=== PATIENT | male | born 1995 | race Caucasian/White ===

== ENCOUNTER 2016-08-27 22:18 | Emergency (ER) | payer OTHER ==
--- NOTE | 2016-08-27 22:48 | ED.REPORT ---
HPI- Male Date of Service Aug 27, 2016 ED Provider: Nursing Notes Stated Complaint: RIGHT TESTICLE TWISTED/UNCOMFORTABLE Nursing Notes Reviewed: Yes Allergies: Coded Allergies: No Known Allergies (Unverified Allergy, 09/03/12) Scheduled PRN Hydrocodone-Acetaminophen 5-325 mg (Hydrocodone-Acetaminophen 5-325 mg) 1 Each Tablet 1-2 TABLET PO Q6H PRN PRN For Pain Ibuprofen (Ibuprofen) 800 Mg Tablet 800 MG PO TID PRN PRN For Pain General Time Seen by MD: 22:47 Discharge & Departure Referrals: NOPCP (PCP) Joselo Patton MD Aug 27, 2016 22:48
[2016-08-28] MEDS ORDERED: HYDR-4003 PO (16:49)
[2016-08-28] MEDS ORDERED: IBUP800T28 PO (16:49)
== END 2016-08-27 23:12 | disposition left against medical advice (07) ==
LOC: SED 22:18
DX: N50.89 Other specified disorders of the male genital organs (principal); Z53.21 Procedure and treatment not carried out due to patient leaving prior to being seen by health care provider

== ENCOUNTER 2016-08-28 14:11 | Emergency (ER) | payer OTHER ==
[~2016-08-28] VITALS: Ht 172.7 cm; Wt 76.4 kg
[2016-08-28 14:32] VITALS: BP 125/76; PULSE 84; RESP 16; O2SAT 99
--- NOTE | 2016-08-28 16:04 | ED.REPORT ---
HPI- Male Date of Service Aug 28, 2016 ED Provider: Dr. Campbell Pt is a 20 year old male presenting to the ED complaining of worsening intermittent right side testicular pain and discomfort onset 3 days ago. Denies fever, nausea, vomiting, history of sexually transmitted infection. Pt was seen at [facility] last night but did not receive an ultrasound, and was sent here from today to receive one. 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) Allergies: Coded Allergies: No Known Allergies (Unverified Allergy, 09/03/12) Scheduled PRN Hydrocodone-Acetaminophen 5-325 mg (Hydrocodone-Acetaminophen 5-325 mg) 1 Each Tablet 1-2 TABLET PO Q6H PRN PRN For Pain Ibuprofen (Ibuprofen) 800 Mg Tablet 800 MG PO TID PRN PRN For Pain General Time Seen by MD: 16:03 Chief Complaint Testicle painful right Hx Obtained From: Patient Arrived By: Walk-in Onset Occurred: 3 days ago Symptom Duration: Intermittent Location: : Testicle right Quality: Painful Severity: Current: Moderate Severity: Maximum: Moderate Recent Healthcare: No recent hospitalization, Recent doctor visit Similar Sx Previous: No Risk- Male Torsion Risk Stratification RF Statements: Risk factors reviewed, No risk factors Past Medical History Past Medical History denies Past Surgical History denies Smoking History Unknown if Ever Smoker Social History Drug Use: THC Ambulatory Status Independent Review of Systems Constitutional: Denies: Fever GI: Denies: Nausea, Vomiting Male: Reports Testicular pain Complete sys rev & neg: except as marked. Physical Exam Initial Vital Signs Vital Signs (First) Date Time Temp Pulse Resp B/P Pulse Ox O2 Delivery O2 Flow Rate FiO2 08/28/16 14:32 36.2 84 16 125/76 99 Room Air Initial VS: Reviewed, Vital signs normal General/Constitutional: Well-developed, Well-nourished Head / Eyes: Atraumatic, Normocephalic, PERRL ENT: Mucous membranes moist, Conjunctiva normal, No scleral icterus Respiratory: No respiratory distress Abdomen / GI: No distention Extremities: Vascular intact, Neuro intact, No swelling, No tenderness Skin: Warm, Dry, No cyanosis Neurologic: Alert, Oriented, Nonfocal Psychiatric: Mood/affect normal, Behavior normal, Normal thought content Male Genitourinary: Atraumatic, Inspection NL, Penis NL, No penile discharge, Testes NL, No mass, No hernia, No lesions or rash Testicle not swollen. No scrotal swelling or adenopathy. Interpretation & Diagnostics Interpretation & Diagnostics: TESTICULAR ULTRASOUND: IMPRESSION: No source for testicular pain at time of exam. Intermittent testicular torsion cannot be excluded. Dictated by: Darron LOPEZ Interpreted: Lorrie Subramanian MD on 08/28/2016 at 16:46 Lab Results Interpretation Test 08/28/16 16:51 Urine Color Yellow (YELLOW) Urine Appearance Turbid (CLEAR,HAZY) Urine pH 8.0 (5.0-8.0) Urine Specific Lynn 1.020 (1.003-1.035) Urine Protein Negativemg/dL (NEG,TRACE) Urine Glucose (UA) Negativemg/dL (NEGATIVE) Urine Ketones Negativemg/dL (NEGATIVE) Urine Occult Blood Negative (NEGATIVE) Urine Nitrite Negative (NEGATIVE) Urine Bilirubin Negative (NEGATIVE) Urine Urobilinogen Normalmg/dL (NORMAL) Urine Leukocyte Esterase Negative (NEGATIVE) Urine RBC 0-2/hpf (0-2) Urine WBC 0-5/hpf (0-5) Urine Epithelial Cells Occasional/hpf (NONE-MOD) Urine Crystals Amorphous phosphates Urine Bacteria None/hpf (NONE-FEW) Urine Hyaline Casts None/lpf (NONE) Urine Granular Casts None seen (NONE SEEN) Urine Waxy Casts None seen (NONE SEEN) Urine Red Blood Cell Casts None seen (NONE SEEN) Urine White Blood Cell Casts None seen (NONE SEEN) Urine Mucus None seen (None Seen) Urine Trichomonas None seen (NONE SEEN) Urine Yeast None (NONE SEEN) Urinalysis Comment None Urine Culture Reflexed Not indicated Lab Results Interpretation: Urine dip negative GC pending Re-Eval/Medical Decision Med Decision/Clinical Course This is a 20-year-old male referred over from urgent care for further evaluation of testicle pain. Patient started about the possibility of torsion, but describes atypical symptoms of slow onset right-sided testicle discomfort. He has been present for a prolonged period of time, it is mildly intermittent, but again more than 24 hours of constant symptoms, not intermittent brief periods. Symptoms are moderate, sometimes worse with movement. He thinks he noticed some testicular swelling last night, but none today. He has had no dysuria, no discharge, denies prior history of STD. He has no medical problems. On exam he generally appears well. He does not appear in physical discomfort. On exam. The testicle exam is actually normal, I do not appreciate any scrotal swelling, testicular tenderness, epididymal tenderness, there is a normal testicular lie, there is no mass or hernia or pathology in the inguinal canal, no adenopathy, no skin lesions. An ultrasound was obtained and was normal-in the setting of 3 days of symptoms with prolonged ongoing discomfort, sensitivity is excellent. The clinical presentation is also argues against torsion. Urinalysis is negative. The patient's and advised that a definitive etiology is not present, supportive care discussed. Need for urology follow-up or return for new or worsened symptoms occur. This point the patient has neitherr clinical historical or physical exam findings nor laboratory and ultrasound findings to suggest torsion. A mild orchitis is still in the differential, idiopathic causes more likely-there are no findings Ultrasound suggest grey epididymitis, no markers of infection on urinalysis. Probability of STD is low, so the patient's aware of the testing as been sent and he will receive call back if abnormal. Patient is is discharged in good condition. Source of Hx: Old records Re-Evaluation/Progress : Time of Eval: 16:55 Patient Status: Condition improved Re-Evaluation/Progress Note: Discussed ultrasound results and plan for discharge. Pt understands and agrees with plan. Differential Diagnosis: Negative: Bladder outlet obstruct, Cellulitis, Cystitis , acute, Carroll's gangrene, Herpetic dermatitis, Hydrocele, Inguinal hernia left, Inguinal hernia right, Necrotizing fasciitis, Paraphimosis, Pyelonephritis , acute, Sexually transmit disease, Syphilis, Testicular torsion left, Testicular torsion right, Torsion, appendix testis, Urinary obstruction, Urinary retention, Urinary tract infection Counseled Regarding: Diagnosis, Lab results, Need for follow-up, When/why to return to ED Discharge & Departure Impression: Primary Impression: Testicular pain, right Disposition: Home Discharge Condition All VS Reviewed: Yes Condition: Improved Additional Instructions: 1. A dangerous cause of the testicular pain was not identified. 2. Your ultrasound did not reveal any evidence of torsion or twisting of the testicle. Additionally the ultrasound did not reveal markers of epididymitis, inguinal hernia, or other common causes of testicular pain. 3. Urine initial urine test did not reveal clear markers of infection-although we have sent the urine for additional testing will take several days, and will contact you if it is abnormal. 4. In this setting at nd inflammation of the testicle that causes the discomfort-but usually resolves with time, sometimes over 1-2 weeks. 4. Take ibuprofen 800 mg 3 times a day for pain. 5. Wear briefs, not boxers as they support the testicle in this setting. 6. If needed for more severe pain, take hydrocodone 1-2 tabs every 6 hours. Note: This medication contains narcotic and causes drowsiness. No driving for at least 4-6 hours after taking. 7. Symptoms are expected to certainly improving shortly, if symptoms are worsening, if he developed fever, scrotal swelling, increasing pain-return to the emergency department. If symptoms are not clearly improving after a few more days, please call the urologist office of Dr. Day for further evaluation. 8. If he needed a primary care physician, follow-up with the residency clinic. Referrals: NOPCP (PCP) Florentin Day MD [facility] Carlos Attestation Portions of this note were transcribed by Stacy Lindo. I, Dr. Campbell personally performed the history, physical exam and medical decision-making; I reviewed and confirmed the accuracy of the information in the transcribed note. Signed by: Carlos Mcleod, 08/28/2016 at [id number]. copies to: Florentin Day MD; [facility] Dominick Campbell MD Aug 28, 2016 16:04 STACY LINDO Aug 28, 2016 16:09
--- NOTE | 2016-08-28 16:47 | DRSVH ---
PROCEDURE: US TESTICULAR SONOGRAM WITH DOPPLER INDICATIONS: testicle pain TECHNIQUE: Real-time scanning was performed of the scrotum and testicles, with image documentation. Color and p ulse Doppler interrogation was performed of both testicles. COMPARISON: None. FINDINGS: Right: Testicle is normal in size at 4.3 x 1.9 x 3.2 cm, and homogenous in echotexture. Epididymis is normal in overall size and morphology. No hydrocele or varicoceles. Overlying scrotal skin is no rmal in thickness. Left: Testicle is normal in size at 3.9 x 2.1 x 3.1 cm, and homogeneous in echotexture. Epididymis is normal in overall size and morphology. No hydrocele or varicoceles. Overlying scrotal skin is no rmal in thickness. Doppler: Color and pulse Doppler demonstrate normal and symmetric arterial flow in both testicles. IMPRESSION: No source for testicular pain at time of exam. Intermittent testicular torsion cannot be excluded. Dictated by: Darron LOPEZ Interpreted: Lorrie Subramanian MD on 08/28/2016 at 16:46 Transcribed by: FABIOLA on 08/28/2016 at 16:47 Approved by: Lorrie Subramanian M.D. on 08/28/2016 at 22:30
[2016-08-28] MEDS ORDERED: HYDR-4003 PO (16:49)
[2016-08-28] MEDS ORDERED: IBUP800T28 PO (16:49)
[2016-08-28 17:02] VITALS: BP 125/76; PULSE 84; RESP 16; O2SAT 99
[2016-08-28 17:12] LABS: APPEARANCE,URINE TURBID (CLEAR,HAZY); COLOR,URINE YELLOW (YELLOW); OCCULT BLOOD,URINE NEGATIVE (NEGATIVE); UROBILINOGEN,URINE NORMAL (NORMAL)
== END 2016-08-28 17:03 | disposition home or self-care (01) ==
LOC: SED 14:11
DX: N50.811 Right testicular pain (principal)